=== PATIENT | female | born 1990 | race Hispanic/Latino ===

== ENCOUNTER 2016-05-26 21:50 | Emergency (ER) | payer OTHER ==
--- NOTE | 2016-05-26 23:29 | XRay Report ---
FINAL REPORT EXAM: XR ANKLE 3 RT HISTORY: ankle injury COMPARISONS: None. FINDINGS: Three views right ankle Intact ankle mortise. Mild periarticular soft tissue swelling. No bone lesion, periosteal reaction, or fracture. No deformity or gross malalignment. IMPRESSION: No fracture or gross malalignment involving the right ankle.
--- NOTE | 2016-05-26 23:30 | XRay Report ---
FINAL REPORT EXAM: XR FOOT 3 RT HISTORY: foot injury COMPARISONS: None. FINDINGS: Three nonweightbearing views right foot No bone lesion, periosteal reaction, or fracture. No deformity or gross malalignment. Very small calcaneal heel spur is incidentally noted. IMPRESSION: No fracture.
--- NOTE | 2016-05-27 02:56 | Emergency Department Report ---
ED Lower Extremity HPI - General Chief Complaint: Extremity Injury, Lower Stated Complaint: RIGHT FOOT/ANKLE PAIN Time Seen by Provider: 05/27/16 02:41 Source: patient, family Mode of arrival: Ambulatory Limitations: No Limitations - History of Present Illness Initial Comments: Patient here reports that she injured her right foot and ankle today. She says she slipped off a curb and her foot was in the flexed position after the incident. She says she's having pain 9 out of 10. She reports swelling. Denies any numbness or tingling. She says she did not take any over-the- counter medication but she did put ice to side. She reports that she cannot weight-bear on her right foot. MD Complaint: ankle injury, foot injury -: This evening Injury: Ankle: Right (pain/swelling), Foot: Right (pain/swelling) Type of Injury: hyperflexion Place: street/outdoors Severity: severe Severity scale (0 -10): 9 Improves With: cold therapy Worsens With: weight bearing, movement, palpation Context: walking Associated Symptoms: swelling, unable to bear weight. denies: snap/pop sensation, numbness, tingling, able to partially bear weight, ambulatory Treatments Prior to Arrival: cold therapy - Related Data Previous Rx's Medication Instructions Recorded Last Taken Type Ibuprofen [Motrin] 600 mg PO Q8H PRN #15 tablet 05/27/16 Unknown Rx Allergies Allergy/AdvReac Type Severity Reaction Status Date / Time strawberry Allergy Hives Verified 05/26/16 22:03 ED Review of Systems ROS: Stated complaint: RIGHT FOOT/ANKLE PAIN Other details as noted in HPI Comment: All other systems reviewed and negative Constitutional: denies: chills, fever Respiratory: no symptoms reported Cardiovascular: denies: chest pain, palpitations, edema, syncope Gastrointestinal: denies: abdominal pain, nausea, vomiting Musculoskeletal: joint swelling, arthralgia. denies: back pain Skin: denies: rash Neurological: abnormal gait (right foot and ankle injury). denies: headache, weakness, numbness, paresthesias, confusion, vertigo ED Past Medical Hx - Past Medical History Previous Medical History?: Yes Hx Psychiatric Treatment: Yes (depression anxiety) - Surgical History Past Surgical History?: Yes Additional Surgical History: tonsilectomy, ear tubes - Family History Family history: no significant - Social History Smoking Status: Never Smoker Substance Use Type: None - Medications Home Medications: Home Medications Medication Instructions Recorded Confirmed Last Taken Type Ibuprofen [Motrin] 600 mg PO Q8H PRN #15 tablet 05/27/16 Unknown Rx ED Physical Exam - General Limitations: No Limitations General appearance: alert, in no apparent distress - Head Head exam: Present: atraumatic, normocephalic, normal inspection - Eye Eye exam: Present: normal appearance, PERRL, EOMI - ENT ENT exam: Present: normal exam, normal orophraynx - Neck Neck exam: Present: normal inspection, full ROM. Absent: tenderness, meningismus, lymphadenopathy - Respiratory Respiratory exam: Present: normal lung sounds bilaterally. Absent: respiratory distress, chest wall tenderness - Cardiovascular Cardiovascular Exam: Present: regular rate, normal rhythm, normal heart sounds - GI/Abdominal GI/Abdominal exam: Present: soft, normal bowel sounds. Absent: distended, tenderness, guarding, rebound, rigid - Expanded Lower Extremity Exam Right Hip exam: Present: normal inspection, full ROM, pelvic stability. Absent: tenderness, swelling, abrasion, laceration, ecchymosis, deformity, crepidus, dislocation, erythema, external rotation, internal rotation, shortening Upper Leg exam: Present: normal inspection, full ROM. Absent: tenderness, swelling, abrasion, laceration, ecchymosis, deformity, crepidus, dislocation, erythema Knee exam: Present: normal inspection, full ROM, full knee extension. Absent: tenderness, swelling, abrasion, laceration, ecchymosis, deformity, crepidus, dislocation, erythema, effusion, pain w/ pronation/supination Lower Leg exam: Present: normal inspection, full ROM. Absent: tenderness, swelling, abrasion, laceration, ecchymosis, deformity, crepidus, dislocation, erythema, palpable cord, Sandy's sign Ankle exam: Present: tenderness (right ankle and foot.), swelling (right ankle and foot). Absent: full ROM (limited range of motion to right ankle pain. Dorsiflexion and plantar flexion of foot.), abrasion, laceration, crepidus, dislocation, erythema Foot/Toe exam: Present: tenderness, swelling. Absent: full ROM (range of motion to right foot.), abrasion, laceration, ecchymosis, deformity, crepidus, dislocation, erythema, amputation, puncture wound, foreign body, calcaneal tenderness, tenderness at base of 5th metatarsal, nail avulsion, subungual hematoma Neuro vascular tendon exam: Present: no vascular compromise, significant pain with passive ROM of distal joint. Absent: pulse deficit, abnormal cap refill, motor deficit, sensory deficit, tendon deficit, extremity cold to touch, pallor , abnormal 2-point discrimination, decreased fine/light touch, foot drop, peroneal nerve deficit Gait: Positive: unable to bear weight - Back Exam Back exam: Present: normal inspection, full ROM. Absent: tenderness, CVA tenderness (R), CVA tenderness (L), muscle spasm, paraspinal tenderness, vertebral tenderness, rash noted - Neurological Exam Neurological exam: Present: alert, oriented X3, abnormal gait (abnormal gait to right lower extremity due to foot and ankle injury), reflexes normal - Psychiatric Psychiatric exam: Present: normal affect, normal mood - Skin Skin exam: Present: warm, dry, intact, normal color. Absent: rash ED Course Vital Signs 05/26/16 05/27/16 22:04 04:02 Temperature 97.6 F Pulse Rate 97 H 78 Respiratory 16 18 Rate Blood Pressure 131/92 Blood Pressure 120/75 [Left] O2 Sat by Pulse 95 Oximetry - Reevaluation(s) Reevaluation #1: 05/27/16 03:31 Patient Percocet 06/3251 tablets in emergency room for right foot and ankle pain. - Orthopedic Splinting/Casting Injury #1 Side: right Lower Extremity Injury Location: ankle, foot Lower Extremity Immobilizer: stirrup splint Other Orthopedic Equipment: crutches ED Lower Extremity MDM - Radiology Data Radiology results: report reviewed X-ray of right foot reveals no acute fracture. Small heel spur. X-ray of right ankle reveals no fracture or gross malalignment involving the right ankle. Mild soft tissue swelling noted. - Medical Decision Making ED course: I diagnosis of right ankle and foot sprain after injury. X-ray reveals performed shows no acute fracture or dislocation but soft tissue swelling to right ankle. Physical exam revealed swelling to right ankle and right foot. Discussed the patient and I told her that she will need to follow- up with orthopedic doctor for further evaluation and treatment of foot and ankle sprain. See procedure note for details on splinting. Patient was given Percocet 5/325 2 tablets in emergency room for pain. discharged home with prescription for Motrin. Critical care attestation.: If time is entered above; I have spent that time in minutes in the direct care of this critically ill patient, excluding procedure time. ED Disposition Clinical Impression: Arthralgia of multiple sites Right foot sprain Qualifiers: Encounter type: initial encounter Qualified Code(s): S93.601A - Unspecified sprain of right foot, initial encounter Right ankle sprain Qualifiers: Encounter type: initial encounter Involved ligament of ankle: unspecified ligament Qualified Code(s): S93.401A - Sprain of unspecified ligament of right ankle, initial encounter Disposition: DISCHARGED TO HOME OR SELFCARE Is pt being admited?: No Does the pt Need Aspirin: No Condition: Stable Instructions: Ankle Sprain (ED), Foot Sprain (ED), Arthralgia (ED), RICE Therapy (ED) Additional Instructions: Please follow rice protocol. Please see orthopedic doctor for further evaluation and treatment of his foot and ankle sprain. No weightbearing to right lower extremity until cleared by orthopedic Prescriptions: Ibuprofen [Motrin] 600 mg PO Q8H PRN #15 tablet PRN Reason: Pain Referrals: SANTOS VELA MD [Staff Physician] - 2-3 Days PRIMARY CARE, [Primary Care Provider] - 2-3 Days Forms: Accompanied Note, Work/School Release Form(ED)
[2016-05-27] MEDS: NORCO 5/325 PO ONE (03:10)
[2016-05-27 04:04] VITALS: BP 120/75
== END 2016-05-27 04:02 | disposition home or self-care (01) ==
LOC: ED 21:50
DX: S93.601A Unspecified sprain of right foot, initial encounter (principal); S93.401A Sprain of unspecified ligament of right ankle, initial encounter; F32.9 Major depressive disorder, single episode, unspecified; F41.9 Anxiety disorder, unspecified; W01.0XXA Fall on same level from slipping, tripping and stumbling without subsequent striking against object, initial encounter; Z91.018 Allergy to other foods; Y93.89 Activity, other specified; Y92.89 Other specified places as the place of occurrence of the external cause; Y99.8 Other external cause status